=== PATIENT | female | born 1935 | race Caucasian/White ===

== ENCOUNTER 2021-04-09 15:10 | Inpatient (IN) | payer MEDICARE, SELFPAY ==
--- NOTE | 2021-04-09 15:33 | ECG_ITS ---
[facility] Test Date: 2021-04-09 Pat Name: Winnie Boyle Department: Room: 275 Gender: Female Iv Technician: : 1935 Requested By: Frank Joseph Order Number: [id number] Isaac MD: Federico Bhandari M.D. Measurements Intervals [place] Rate: 73 P: 86 CT: 144 QRS: -65 QRSD: 113 T: 133 QT: 404 QTc: 445 Interpretive Statements SINUS RHYTHM WITH OCCASIONAL SUPRAVENTRICULAR PREMATURE COMPLEXES INFERIOR MYOCARDIAL INFARCTION [40+ ms Q WAVE AND/OR ST/T ABNORMALITY IN II/aVF], PROBABLY OLD MODERATE T-WAVE ABNORMALITY, CONSIDER LATERAL ISCHEMIA [-0.1+ mV T WAVE IN I/aVL/V5/V6] No previous ECG available for comparison Electronically Signed On 04-09-2021 19:23:30 CDT by Federico Bhandari M.D. [id number]
--- NOTE | 2021-04-09 15:37 | CTR_ITS ---
PROCEDURE INFORMATION: Exam: CT Head Without Contrast Exam date and time: 04/09/2021 3:54 PM Age: 85 years old Clinical indication: Injury or trauma; Fall; Blunt trauma (contusions or hematomas); Injury details: Fell down steps; Additional info: Pain, fall TECHNIQUE: Imaging protocol: Computed tomography of the head without contrast. Total images: 225 Radiation optimization: All CT scans at this facility use at least one of these dose optimization techniques: automated exposure control; mA and/or kV adjustment per patient size (includes targeted exams where dose is matched to clinical indication); or iterative reconstruction. COMPARISON: No relevant prior studies available. RADIATION DOSE METRICS: Total DLP (mGy-cm): 963.16 FINDINGS: Brain: No evidence of active or acute intracranial pathologic process, hemorrhage, or trauma. Moderate small vessel ischemic disease with senile periventricular leukomalacia. No mass effect. No midline shift. No visible hyperdense MCA or insular ribbon sign. Advanced cerebral and cerebellar atrophy with ventricular dilatation greater than that anticipated for patient's chronological age. Cerebral ventricles: No ventriculomegaly. Bones/joints: Unremarkable. No acute fracture. Paranasal sinuses: Visualized sinuses are unremarkable. No fluid levels. Mastoid air cells: Visualized mastoid air cells are well aerated. Soft tissues: Unremarkable. CT/CT head wo con* [id number] IMPRESSION: No evidence of active or acute intracranial pathologic process, hemorrhage, or trauma. Radiation Dose CTDIVOL = (mGy): DLP = 963.16 (mGy-cm)
--- NOTE | 2021-04-09 15:37 | CTR_ITS ---
PROCEDURE INFORMATION: Exam: CT Cervical Spine Without Contrast Exam date and time: 04/09/2021 3:54 PM Age: 85 years old Clinical indication: Injury or trauma; Fall; Blunt trauma; Additional info: Pain, fall TECHNIQUE: Imaging protocol: Computed tomography images of the cervical spine without contrast. Total images: 326 Radiation optimization: All CT scans at this facility use at least one of these dose optimization techniques: automated exposure control; mA and/or kV adjustment per patient size (includes targeted exams where dose is matched to clinical indication); or iterative reconstruction. COMPARISON: No relevant prior studies available. RADIATION DOSE METRICS: Total DLP (mGy-cm): 314.66 FINDINGS: Bones/joints: No acute fracture. Advanced degenerative disease and degenerative disc disease of the cervical spine with spondylosis deformans. Advanced facet arthrosis. Osteopenia/osteoporosis. Mild scoliotic curvature. Discs/Spinal canal/Neural foramina: Degenerative disc disease most advanced with disc space height loss and spondylosis deformans C5/C6 and C6/C7 and to a less significant degree C2/C3. Degenerative disc disease is evident throughout the visualized cervical and upper thoracic spine.No significant disc protrusion. No severe spinal canal stenosis. Bilateral neural foraminal stenosis C3/C4. Right neural foraminal stenosis C4/C5 and C5/C6. Thyroid: Thyroid goiter. No follow-up recommended. Lungs: Lung apices are unremarkable for age. Soft tissues: Unremarkable for age. CT/CT cervical spin wo con* [id number] IMPRESSION: 1. No visible fracture. 2. Advanced degenerative disease and degenerative disc disease. Radiation Dose CTDIVOL = (mGy): DLP = 314.66 (mGy-cm)
--- NOTE | 2021-04-09 15:38 | P.HP_ITS ---
Providers/Chief Complaint Admitting Physician: Frank Bueno MD Primary Care Provider: Lito Pickard MD Chief Complaint: L HIP FX History of Present Illness Winnie Boyle is a 85 year old female who presents from [facility] in [facility] with a left subcapital hip fracture. Patient reports in a neighbor's dog came to greet her, and accidentally pushed her down 3 steps. She states she had immediate pain in her left hip. She is also having some posterior neck pain and a headache. She reports she was a little nauseated but not now. She had no vomiting. She has not been ill lately. She reports normally she walks around the flowers in her yard without any chest discomfort and has fair exercise tolerance. She had been told she had a myocardial infarction in her 30s but never had any need for any intervention or other symptoms. She denies any active chest discomfort now or any other injuries other than what is stated above. She denies any history of Covid. Review of Systems General: Reports: 10 or more systems reviewed and unremarkable except in HPI and below Const: Denies: fever(s) or chills Eyes: Denies: change in vision ENMT: Denies: throat pain Card: Denies: chest pain Resp: Denies: dyspnea GI: Reports: nausea; Denies: abdominal pain or vomiting : Denies: flank pain Musc: Reports: neck pain and extremity pain Skin/Breast: Denies: rash Neuro: Reports: headache(s) Psych: Denies: anxiety or depression Endo: Denies: polyuria Rivera/Lymph: Denies: easy bruising All/Imm: Denies: urticaria PFSH Acute PFSH: Medical History (Updated 04/09/21 @ 15:47 by Frank Bueno MD) Nephrolithiasis Osteoporosis Rheumatoid arthritis Tobacco dependency Surgical History (Updated 04/09/21 @ 15:44 by Frank Bueno MD) History of appendectomy History of exploratory laparotomy History of hernia repair Family History (Updated 04/09/21 @ 15:44 by Frank Bueno MD) Other Diabetes Social History (Updated 04/09/21 @ 15:44 by Frank Bueno MD) Smoking and tobacco status: current some day smoker Alcohol intake: current Alcohol intake frequency: 0-2 Drinks per Day Supplemental PFSH Information: History of anterior and posterior vaginal repair Physical Exam Narrative: EXAM NARRATIVE: General exam is a white female, alert and oriented complaining of left hip pain HEENT: Pupils equally round. Arcus senilis present Neck is supple no lymphadenopathy or thyromegaly Cardiovascular regular rate and rhythm without murmur Lungs clear no wheezing or crackles Abdomen is soft with positive bowel sounds. No obvious organomegaly is deferred, Wang noted Extremities no cyanosis clubbing or edema, obvious joint deformities consistent with rheumatoid arthritis Skin no rash Neuro no obvious focal deficits. Data Other data: Outside laboratory demonstrated a glucose of 140, sodium 136, potassium 4.1, chloride 100, bicarb 27, BUN 16, creatinine 0.5, LFTs normal. Platelet count 207, hemoglobin 14.5, white blood cell count 8.7 Fracture left femoral neck on plain film report. Covid PCR negative Vitamin D level 79 A&P Assessment and plan (1) Closed left hip fracture: Acute Bedrest Pain control with morphine Zofran for nausea Orthopedic surgery consultation N.p.o. in case she goes to surgery tonight Past history of osteoporosis. Vitamin D level okay. Check TSH with a.m. lab. Status: Acute (2) Fall: Significant mechanical fall down 3 steps, caused by interaction with dog. She is having some neck pain post fall and has not had neck imaging. She had no syncope. She also complains of a mild headache. See notation regarding neck pain below. Status: Acute (3) Hyperglycemia: Check A1c in the morning. Blood sugar minorly elevated. Status: Acute (4) Rheumatoid arthritis: Currently not on treatment. Has obvious deformities of her hands. Status: Acute (5) Tobacco dependency: Counseled on stopping Status: Acute (6) Neck pain: Check CT cervical spine and CT head noncontrast Status: Acute Additional A&P Information Patient gives past history of coronary artery disease with VT at young age but no intervention. Significance of this is uncertain. No history to suggest further testing is needed prior to surgery. Full code SCDs for DVT prophylaxis as surgery may be performed tonight No direct contraindications to surgery, so long as CT of head and neck do not show bleeding or fracture. Attestations Medical Necessity Statement*: Will need greater than 2 midnight stay for evaluation and treatment of hip fracture Time Spent in Patient Care: Greater than 35 minutes Coding Level of Care Code Acute Rural Carrier for Chg Fwd Diagnoses Closed left hip fracture S72.002A Fall W19.XXXA Hyperglycemia R73.9 Rheumatoid arthritis M06.9 Tobacco dependency F17.200 Neck pain M54.2
--- NOTE | 2021-04-09 15:51 | XR_ITS ---
WS: [id number] Left hip, AP view, 04/09/2021 Clinical Data: Left hip fracture Comparison: None. Findings: There is an intertrochanteric fracture of the left hip. The femoral head remains in the acetabulum. T he proximal femoral medullary shaft is intact. The adjacent left pelvis is not remarkable. XR/XR hip LT 1V wo/w pel [id number] Impression: Intertrochanteric fracture of the left hip.
[2021-04-09 16:00] VITALS: BP 160/78; PULSE 76; RESP 18; TEMP 36.9; O2SAT 92
[2021-04-09 16:15] VITALS: BMI 21.5
[2021-04-09 16:20] VITALS: PULSE 94; O2SAT 91
[2021-04-09 16:29] VITALS: RESP 18; O2SAT 92
[2021-04-09] MEDS: sodium chloride 0.9% 1,000 ML 75 ML IV (16:29)
[2021-04-09] MEDS: morphine 4 mg/mL SDV 1 mL 2 MG IVP (16:29)
--- NOTE | 2021-04-09 16:30 | P.CONIM_ITS ---
Providers/Reason For Consult Consulting Physican/Specialty*: Anthony Lujan MD; orthopedic surgery Reason for Consult*: Left intertrochanteric hip fracture Attending Physician: Frank Bueno MD Primary Care Provider: Lito Pickard MD History of Present Illness History of Present Illness Winnie Boyle is a 85 year old female who was transferred from [facility] to [facility] in [place] after a fall at home. She reportedly was stepping out of her living room down a step outside with a neighbor's dog came to greet her. He accidentally pushed her down 3 steps with immediate pain in her left hip. She was seen in [facility] requested transfer here to [facility]. She describes pain in her left hip and posterior neck. She describes a previous history of back and posterior hip pain she attributes to piriformis syndrome. PFSH Acute PFSH: Medical History (Updated 04/09/21 @ 16:35 by Anthony Lujan MD) Nephrolithiasis Osteoporosis Rheumatoid arthritis Tobacco dependency Surgical History (Updated 04/09/21 @ 15:44 by Frank Bueno MD) History of appendectomy History of exploratory laparotomy History of hernia repair Family History (Updated 04/09/21 @ 15:44 by Frank Bueno MD) Other Diabetes Social History (Updated 04/09/21 @ 15:44 by Frank Bueno MD) Smoking and tobacco status: current some day smoker Alcohol intake: current Alcohol intake frequency: 0-2 Drinks per Day Vitals/I&O/Wt Last Vital Signs Temp 98.4 F 04/09/21 16:00 Pulse 76 04/09/21 16:00 Resp 18 04/09/21 16:00 BP 160/78 04/09/21 16:00 Pulse Ox 92 04/09/21 16:00 Physical Exam Narrative: EXAM NARRATIVE: The patient is a thin female in bed in no obvious distress. She is awake and alert. She answers questions appropriately and is oriented to person place and time. HEAD: Normocephalic/atraumatic. NECK: Soft supple nontender. HEART: Normal heart sounds, regular rhythm. CHEST: Clear to auscultation. ABDOMEN: Soft nontender nondistended. She has no malalignment of the left lower extremity but exquisite pain with rotation of the left hip. She will flex extend her toes and ankle bilaterally without motor deficits. Sensation is grossly intact to light touch. Urinary Catheter Management^: Wang: Cath Placed During This Visit: yes Urinary Catheter Date of Insertion: 04/08/21 Urinary Catheter Time of Insertion: 09:00 Data Imaging^: Xray Ortho: My impression: I reviewed an AP of the left hip. The patient has a nondisplaced left intratrochanteric hip fracture Radiologist's impression: Radiologist report is not available as of yet. A&P Assessment and plan (1) Intertrochanteric fracture of left hip: The patient has a nondisplaced intertrochanteric left hip fracture. She has significant osteopenia. Medical comorbidities including likely rheumatoid arthritis, coronary artery disease, and a 73-year history of smoking contribute to medical risk with surgery. I discussed options with the patient.. I told the patient we could treat this nonoperatively but certainly they would be at risk for medical problems without surgery. Theywould have problems with pain that would require narcotics for pain control. They would require a long period of bedrest respiratory scientist risk for pneumonia and skin breakdown. I discussed surgical intervention with the patient. I told them with open reduction internal fixation they should be able to be mobilized and resume ambulatory status. We can eliminate the problems associated with prolonged bed rest and would have better control of pain. Certainly there would be inherent risk with surgery. These would would include the risk of cardiac complications, stroke, infection, and even . I discussed risk of any orthopedic implant including nonunion, malunion, a component failure. I discussed the possible need for component removal. I discussed risk of deep venous thromboses and pulmonary emboli that are present with any treatment and the importance of DVT prophylaxis. The patient expressed good understanding of alternative treatments, seem to comprehend, and agrees to surgical intervention. Status: Acute Coding Level of Care Code Acute Car Servicer for Leonel Carrasco Diagnoses Intertrochanteric fracture of left hip S72.142A
[2021-04-09 19:26] VITALS: BP 118/66; PULSE 74; RESP 17; TEMP 37.3; O2SAT 94
[2021-04-09 23:46] VITALS: BP 114/68; PULSE 72; RESP 17; TEMP 36.5; O2SAT 92
[2021-04-10] VITALS (22 sets, daily range): BP systolic 115–174; BP diastolic 60–88; PULSE 69–92; RESP 16–96; TEMP 36.3–38.1; O2SAT 86–99
--- NOTE | 2021-04-10 | XR_ITS ---
WS: [id number] Left hip, C-arm fluoroscopy view, 04/10/2021 Clinical Data: OR PICS Comparison: Left hip, 04/09/2021. Findings: A left hip nail is inserted in the left femoral neck. There is a long trevor in the left femur. XR/XR hip LT 2-3V wo/w pel* [id number] Impression: Internal fixation of left hip intertrochanteric fracture.
--- NOTE | 2021-04-10 | SCC_ITS ---
Procedure Done: Open reduction internal fixation left hip with intramedullary device 50.5 seconds of fluoroscopic guidance, for a cumulative dose of - mGy, was provided to Dr. Lujan by the radiology department. C-arm images of the LEFT hip were saved for the patient's permanent record. [facility]itchie
[2021-04-10] MEDS: sodium chloride 0.9% 1,000 ML 75 ML IV (05:16)
[2021-04-10 06:32] LABS: Basophils % 0.4 %; Eosinophils % 0.4 %; Hematocrit 36.3 % (37.0-47.0); Hemoglobin 11.7 g/dL (11.5-15.3); Mean Corpuscular HGB Conc 32.2 g/dL (30.0-36.0); Mean Corpuscular Volume 96.3 fL (81-99); Mean Platelet Volume 9.4 fL (7.4-10.4); Monocytes # 0.7 10^3/uL (0.2-0.9); Monocytes % 9.8 %; Neutrophils # 5.05 10^3/uL (1.8-7.7); Neutrophils % 74.1 %; Nucleated Red Blood Cells % 0 %; Platelet Count 165 10^3/cmm (130-400); Red Blood Count 3.77 10^6/uL (4.1-5.3); Red Cell Distribution Width 13.6 % (12.1-15.1); White Blood Count 6.8 10^3/uL (4.0-10.0)
[2021-04-10 06:47] LABS: Estmated Average Glucose 91; Hemoglobin A1C 4.8 % (4.0-6.0)
[2021-04-10 07:00] LABS: Alanine Aminotransferase 10 U/L (0-33); Albumin Level 3.2 g/dL (3.5-5.2); Alkaline Phosphatase 39 IU/L (35-105); Anion Gap 10.2 (5-19); Aspartate Amino Transferase 20 U/L (0-32); Blood Urea Nitrogen 12 mg/dL (8-23); Calcium 7.7 mg/dL (8.5-10.5); Carbon Dioxide 26 mmol/L (22-29); Chloride 104 mmol/L (98-107); Globulin 2.4 g/dL (1.3-4.6); Glucose 84 mg/dL (65-115); Osmolality Calculated 281 mOsm/kg (285-295); Potassium 4.2 mmol/L (3.5-5.1); Sodium 136 mmol/L (136-145); Thyroid Stimulating Hormone 0.52 uIU/mL (0.27-4.20); Total Bilirubin 0.7 mg/dL (0.15-1.2); Total Protein 5.6 g/dL (6.6-8.7)
--- NOTE | 2021-04-10 09:56 | PC.PHAR ---
pt states she doesnt really take medications-pt states she did have a rx for prednisone 10mg and norco 7.5-325mg-ext med history shows a rx filled on 04/08/[address] or qty-d/s or where filled at-called [facility] and [facility] none of them filled those medication for the pt-
--- NOTE | 2021-04-10 12:16 | W.PM.OPSUD ---
Surgery/Procedure H&P Update DATE OF PROCEDURE: April 10, 2021 DATE H&P PERFORMED: 04/09/21 PLANNED PROCEDURE: Operation Date: 04/10/21 12:00 Proposed Procedures p Trochanteric Femoral Nail(Left) - Anthnoy Lujan MD
[2021-04-10] MEDS: sodium chloride 0.9% 1,000 ML 30 ML IV (12:29)
--- NOTE | 2021-04-10 12:35 | ANES.PREANE2 ---
Pre-Anesthetic Assessment Pre-Anesthetic Assessment: Height/Weight: Height 1.57 m Weight 53.388 kg Temp Pulse Resp BP Pulse Ox 99.1 F 76 18 151/75 90 04/10/21 12:25 04/10/21 12:25 04/10/21 12:25 04/10/21 12:25 04/10/21 12:25 Preop Diagnosis: femoral fracture Proposed Procedure: Operation Date: 04/10/21 12:00 Proposed Procedures p Trochanteric Femoral Nail(Left) - Anthony Lujan MD Familial anesthetic complications: none Was Beta Roel taken within 24 hours: N/A Was Clonidine taken within 24 hours: N/A Last intake: > 8 hrs Social: Social History: Tobacco and No alcohol Exam: Pre-Anes Outpt Exam: alert, oriented x 3, clear to auscultation bilaterally and regular rate & rhythm Airway: Cervical ROM: WNL MP: 2 Dentition: False Pulmonary: Pulmonary: COPD CV/HEM: CV/HEM: [place] (remote - age 30s) Comments: able to achieve > 4 mets Musc/skel: Musc/skel: RA Anesthetic Plan: ASA status: 3 Anesthesia: General Risk of > 500 ml blood loss (7ml/kg in children): No Meds/Allergies Current Medications: Current Medications Generic Name Dose Route Start Last Admin Trade Name Freq PRN Reason Stop Dose Admin Docusate Sodium 100 mg 04/09/21 18:00 04/10/21 12:27 Docusate Sodium 100 Mg Capsule PO Not Given BID GUTIERREZ Sodium Chloride 1,000 mls @ 75 ml s/hr 04/09/21 15:45 04/10/21 05:16 Sodium Chloride 0.9% IV 75 mls/hr .[id number] GUTIERREZ Administration Sodium Chloride 1,000 mls @ 30 ml s/hr 04/10/21 12:15 04/10/21 12:29 Sodium Chloride 0.9% IV 04/11/21 12:14 30 mls/hr .Q24H GUTIERREZ Administration Morphine Sulfate 2 mg 04/09/21 15:33 04/09/21 16:29 Morphine 4 Mg/Ml Sdv 1 Ml IVP 2 mg Q4H PRN Administration SEVERE PAIN PFSH Anesthesia PFSH: Medical History (Updated 04/09/21 @ 16:35 by Anthony Lujan MD) Nephrolithiasis Osteoporosis Rheumatoid arthritis Tobacco dependency Surgical History (Updated 04/09/21 @ 15:44 by Frank Bueno MD) History of appendectomy History of exploratory laparotomy History of hernia repair Family History (Updated 04/09/21 @ 15:44 by Frank Bueno MD) Other Diabetes Social History (Updated 04/09/21 @ 15:44 by Frank Bueno MD) Smoking and tobacco status: current some day smoker Alcohol intake: current Alcohol intake frequency: 0-2 Drinks per Day Supplemental PFSH Information: History of anterior and posterior vaginal repair Data Anesthesia CBC & Chem 7: 04/10/21 06:05 04/10/21 06:05 Other Labs: Laboratory Results - last 48 hr 04/10/21 04/10/21 04/10/21 06:05 06:05 06:05 WBC 6.8 RBC 3.77 L Hgb 11.7 Hct 36.3 L MCV 96.3 MCH 31.0 MCHC 32.2 RDW 13.6 Plt Count 165 MPV 9.4 Neut % (Auto) 74.1 Lymph % (Auto) 15.0 Burnett % (Auto) 9.8 Eos % (Auto) 0.4 Baso % (Auto) 0.4 Neut # (Auto) 5.05 Lymph # (Auto) 1.0 Burnett # (Auto) 0.7 Eos # (Auto) 0.0 Baso # (Auto) 0.0 Nucleated RBC % (auto) 0 Nucleated RBCs # 0.0 Sodium 136 Potassium 4.2 Chloride 104 Carbon Dioxide 26 Anion Gap 10.2 BUN 12 Creatinine 0.5 GFR Calculation Not Reportable Glucose 84 Estimat Average Glucose 91 Hemoglobin A1c 4.8 Calculated Osmolality 281 L Calcium 7.7 L Total Bilirubin 0.7 AST 20 ALT 10 Alkaline Phosphatase 39 Total Protein 5.6 L Albumin 3.2 L Globulin 2.4 TSH 0.52 Cardiac Studies: No Data to Display
--- NOTE | 2021-04-10 13:16 | P.OP_ITS ---
Operative Report Date of procedure: April 10, 2021 Pre-op Diagnosis: Left intertrochanteric femoral fracture Post-op diagnosis: same Procedure Done: Open reduction internal fixation left hip with intramedullary device Implants: Sohan gamma nail 13X 380mm, 100mm lag screw Pathology: none sent Anesthesia: General Estimated blood loss (mL): 100 Complications: None Findings: Patient had a minimally displaced 2 part left intertrochanteric fracture with significant osteopenia of the bone Condition: stable Disposition: PACU Procedure: The patient was taken to the operating room. They were given 1 g of Ancef. They were positioned on the fracture table with the right lower extremity in gentle traction. A timeout was performed. A 2 cm long incision was made proximal to the greater trochanter scalpel blade. Dissection was carried down to tip the greater trochanter. A guidepin was passed manually from the tip of the trochanter down the shaft. The proximal reamer was utilized to open up the proximal canal. An 13 mm 380 Sohan gamma nail was passed down the canal without difficulty. Under visualization of fluoroscopy a guidepin was driven up into the head and neck at 125? angle. It was measured at 1 mm in length and a lag screw similar length was then placed and locked into place with the proximal locking screw. [The static guides were then used to pass the distal locking screw.] Intraoperative imaging was obtained verifying satisfactory position of the hardware and reduction of the fracture. Deep tis sues were closed with 0 Vicryl . Subcutaneous tissue were closed with 2-0 Vicryl. Sterile dressings were applied. The patient was extubated and taken to recovery room in stable condition.
--- NOTE | 2021-04-10 13:27 | P.PCN_ITS ---
PACU note PACU note: VSS, Good respiratory effort, report to FIG WASHER Post-Anesthesia Exam: awake
--- NOTE | 2021-04-10 13:27 | PM.PACU ---
PACU note PACU note: VSS, Good respiratory effort, report to [facility] Post-Anesthesia Exam: awake
--- NOTE | 2021-04-10 13:38 | SUR.PHASEI ---
PT AWAKE ALERT DENIES PAIN IF LAYING STILL, PT ON2LNC TAKING OCC ICE CHIPS VSS LT HIP DRESSING D/I DISTAL FOOT PINK WARM WITH STRONG REGULAR PULSE NOTED. TAYLOR TO DD WITH YELLOW URINE NOTED TO TUBING AND BAG.
[2021-04-10] MEDS: morphine 4 mg/mL SDV 1 mL 2 MG IVP ×2 (13:43→13:55)
--- NOTE | 2021-04-10 14:00 | SUR.PHASEI ---
1343 PT C/O OF INCREASED PAIN TO LT HIP SEE MED GIVEN SITES D/I DISTAL FOOT PINK WARM DRY WITH STRONG REGULAR PULSE NOTED.
--- NOTE | 2021-04-10 14:12 | ANE.PACU2 ---
Inpatient post-anesthesia follow up: Airway intact: Yes Vital signs: Temperature 97.4 F Pulse Rate 78 Respiratory Rate 17 Blood Pressure 166/77 Pulse Oximetry 98 Oxygen Delivery Me thod [ Nasal Cannula Current Rate & Del fiona] Oxygen Delivery Me thod Nasal Cannula Oxygen Flow Rate [ Current Rate 2 & Delivery] Oxygen Flow Rate 2 Fraction of Inspir ed Oxygen Hydration adequate: Yes Nausea and vomiting: No Pain level: 2 Mental status: Baseline
--- NOTE | 2021-04-10 14:28 | PM.PN ---
Subjective Subjective: Interval history: I saw Ms. Boyle earlier this morning. She had no particular complaints and was ready for surgery. Medications: Reviewed: Yes Vitals/I&O/Wt Last Vital Signs Temp 97.4 F L 04/10/21 14:05 Pulse 78 04/10/21 14:05 Resp 17 04/10/21 14:05 BP 166/77 04/10/21 14:05 Pulse Ox 98 04/10/21 14:05 04/09/21 04/10/21 04/10/21 22:59 06:59 14:59 Intake Total 0 / 0 958.75 / 958.75 150 / 150 Output Total 550 / 550 400 / 950 150 / 150 Balance -550 / -550 558.75 / 8.75 0 / 0 Weight last 48 hrs Weight 53.388 kg Physical Exam Narrative: EXAM NARRATIVE: General exam no apparent distress Cardiovascular regular in rhythm without murmur Lungs clear Abdomen is soft with positive bowel sounds Extremities no cyanosis clubbing or edema Urinary Catheter Management^: Wang: Cath Placed During This Visit: yes Reason for Continuing Indwelling Catheter: Perioperative Use in Selected Surgeries Urinary Catheter Date of Insertion: 04/08/21 Urinary Catheter Time of Insertion: 09:00 Data : 04/10/21 06:05 04/10/21 06:05 A&P Assessment and plan (1) Closed left hip fracture: Directly postoperative currently Pain control with morphine Zofran for nausea Appreciate orthopedic surgery consultation Status: Acute (2) Fall: Significant mechanical fall down 3 steps, caused by interaction with dog. She is having some neck pain post fall and has not had neck imaging. She had no syncope. She also complains of a mild headache. See notation regarding neck pain below. CT of head and neck were performed and negative for intracranial hemorrhage, acute findings, fracture Status: Acute (3) Hyperglycemia: TSH and hemoglobin A1c was normal Status: Acute (4) Rheumatoid arthritis: Currently not on treatment. Has obvious deformities of her hands. She indicates to me she does not take prednisone 10 mg daily Status: Acute (5) Tobacco dependency: Counseled on stopping Status: Acute (6) Neck pain: CT negative for fracture Status: Acute Additional A&P Information Patient gives past history of coronary artery disease with MA at young age but no intervention. Significance of this is uncertain. No history to suggest further testing is needed prior to surgery. Full code SCDs for DVT prophylaxis It appears aspirin has been added from the surgeon for DVT prophylaxis following orthopedic surgery. Attestations Medical Necessity Statement*: Needs continued hospital stay for close monitoring following fracture repair. Coding Level of Care Code Acute Artificial Leather Calender Operator for Chg Fwd Diagnoses Closed left hip fracture S72.002A Fall W19.XXXA Hyperglycemia R73.9 Rheumatoid arthritis M06.9 Tobacco dependency F17.200 Neck pain M54.2
[2021-04-10] MEDS: HYDROcodone-acetaminophen 5-325 mg Tablet 1 TAB PO (16:37)
[2021-04-10] MEDS: sennosides-docusate Tablet 2 TAB PO (17:28)
[2021-04-10] MEDS: calcium carbonate 500 mg Chew Tablet 1000 MG PO (17:28)
[2021-04-10] MEDS: iron polysaccharide complex 150 mg Capsule PO (17:28)
--- NOTE | 2021-04-10 18:52 | PC.RESP ---
Smoking Cessation information sent to patient.
[2021-04-11] VITALS (7 sets, daily range): BP systolic 85–121; BP diastolic 52–79; PULSE 70–87; RESP 16–20; TEMP 36.3–37.2; O2SAT 92–99
[2021-04-11 02:39] LABS: Basophils % 0.3 %; Eosinophils % 0.1 %; Hematocrit 33.2 % (37.0-47.0); Hemoglobin 10.9 g/dL (11.5-15.3); Lymphocytes # 0.6 10^3/uL (0.8-4.8); Lymphocytes % 8.6 %; Mean Corpuscular HGB Conc 32.8 g/dL (30.0-36.0); Mean Corpuscular Hemoglobin 30.9 pg (28.0-34.0); Mean Corpuscular Volume 94.1 fL (81-99); Mean Platelet Volume 9.7 fL (7.4-10.4); Monocytes # 0.6 10^3/uL (0.2-0.9); Monocytes % 8.3 %; Neutrophils # 5.88 10^3/uL (1.8-7.7); Neutrophils % 82.4 %; Nucleated Red Blood Cells % 0 %; Platelet Count 156 10^3/cmm (130-400); Red Blood Count 3.53 10^6/uL (4.1-5.3); Red Cell Distribution Width 13.3 % (12.1-15.1); White Blood Count 7.1 10^3/uL (4.0-10.0)
[2021-04-11 02:58] LABS: Anion Gap 12.1 (5-19); Blood Urea Nitrogen 13 mg/dL (8-23); Calcium 7.6 mg/dL (8.5-10.5); Carbon Dioxide 23 mmol/L (22-29); Chloride 98 mmol/L (98-107); Glucose 108 mg/dL (65-115); Osmolality Calculated 269 mOsm/kg (285-295); Potassium 4.1 mmol/L (3.5-5.1); Sodium 129 mmol/L (136-145)
[2021-04-11] MEDS: HYDROcodone-acetaminophen 5-325 mg Tablet 1 TAB PO ×3 (03:23→17:17)
--- NOTE | 2021-04-11 06:44 | PC.NURSE ---
SHIFT SUMMARY Has had a good night. Only took po Hydrocodone X1. Says really doesn't hurt unless she moves left leg. Dressing to lat left hip intact. Neurovascular check to left leg WNL. Temp to 100.6 tonight. Enc use of IS and po fluids. Drank some prune juice during night. Says hopefully will help her bowels move and wont need a laxative. Pt pays close attention to her diet and eats organic foods. Was not very happy with a sandwich she had last night due to processed meat. Family member had some soup from [email or web address] sent to her. Felipe removed this am. O2 in place at 3l per NC. Pt wanted it off during night but sats dropped into 80's so O2 resumed.
[2021-04-11] MEDS: morphine 4 mg/mL SDV 1 mL 2 MG IVP (07:26)
--- NOTE | 2021-04-11 07:36 | PC.NURSE ---
ACTIVITY Attempted to get up to BSC and chair this am. Pt thought she needed to have a BM. Very resistant to moving. After about 10 minutes got her to a standing position but would not slide or move feet at all. Doesn't want help from nurses. Yelled at nurse for even trying to help her. Stood holdling on to walker for another 10 minutes without any progress towards the BSC. Sat her back on side of bed and wants to sit there for breakfast. RN is medicating with some IV Morphine. Pt had declined taking any during night. Report to day shift nurse
--- NOTE | 2021-04-11 07:42 | XR_ITS ---
WS: [id number] Portable AP upright chest, 04/11/2021 Clinical Data: hypoxia Comparison: None. Findings: No nodules, masses or effusions are seen. There is scarring in the left lower lobe. No pneu monia or pneumothorax is seen. The pulmonary vascularity is normal. The heart is normal. The aortic a rch shows calcification and tortuosity. 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 XR/XR chest 1V portable 42607 Impression: Atherosclerosis.
[2021-04-11] MEDS: calcium carbonate 500 mg Chew Tablet 1000 MG PO (08:58)
[2021-04-11] MEDS: sennosides-docusate Tablet 2 TAB PO ×2 (08:59→17:18)
[2021-04-11] MEDS: multivitamin therapeutic Tablet 1 TAB PO (08:59)
[2021-04-11] MEDS: cholecalciferol (vitamin D3) 1,000 unit Tablet 1000 UNIT PO (08:59)
[2021-04-11] MEDS: aspirin 325 mg EC Tablet PO (08:59)
[2021-04-11] MEDS: iron polysaccharide complex 150 mg Capsule PO (09:02)
--- NOTE | 2021-04-11 10:32 | PM.PN ---
Subjective Subjective: Interval history: Ms. Boyle reports she is doing okay today. Her pain is under better control. Medications: Reviewed: Yes Vitals/I&O/Wt Last Vital Signs Temp 97.9 F 04/11/21 10:25 Pulse 87 04/11/21 10:25 Resp 16 04/11/21 10:25 BP 85/52 04/11/21 10:25 Pulse Ox 94 04/11/21 10:25 04/10/21 04/11/21 04/11/21 22:59 06:59 14:59 Intake Total 1313.25 / 1463.25 600 / 2063.25 480 / 480 Output Total 700 / 850 550 / 1400 Balance 613.25 / 613.25 50 / 663.25 480 / 480 Weight last 48 hrs Weight 53.388 kg Physical Exam Narrative: EXAM NARRATIVE: General exam no apparent distress Cardiovascular regular in rhythm without murmur Lungs clear Abdomen is soft with positive bowel sounds Extremities no cyanosis clubbing or edema. Incision site left hip with dressing clean and dry Urinary Catheter Management^: Wang: Cath Placed During This Visit: yes, but has since been removed by the nurse Reason for Continuing Indwelling Catheter: Decision to DC Catheter Urinary Catheter Date of Insertion: 04/08/21 Urinary Catheter Time of Insertion: 09:00 Date Urinary Catheter Removed: 04/11/21 Time Urinary Catheter Discontinued: 06:42 Data : 04/11/21 02:18 04/11/21 02:18 A&P Assessment and plan (1) Closed left hip fracture: Postoperative day #1 ORIF left hip Appreciate orthopedic surgery consultation Focus on rehabilitation today Status: Acute (2) Fall: Significant mechanical fall down 3 steps, caused by interaction with dog. She is having some neck pain post fall and has not had neck imaging. She had no syncope. She also complains of a mild headache. See notation regarding neck pain below. CT of head and neck were performed and negative for intracranial hemorrhage, acute findings, fracture Status: Acute (3) Hyperglycemia: TSH and hemoglobin A1c was normal Status: Acute (4) Rheumatoid arthritis: Currently not on treatment. Has obvious deformities of her hands. She indicates to me she does not take prednisone 10 mg daily. This was discontinued Status: Acute (5) Tobacco dependency: Counseled on stopping Status: Acute (6) Neck pain: CT negative for fracture Status: Acute Additional A&P Information Patient gives past history of coronary artery disease with [place] at young age but no intervention. Significance of this is uncertain. No history to suggest further testing is needed prior to surgery. Acute postoperative blood loss anemia. Hemoglobin 10.9 today. No need for transfusion. Temperature of 100.6 last night. Urinalysis and chest x-ray ordered. Urinalysis is pending. Chest x-ray shows no infiltrate. Mild hyponatremia. Fluids discontinued. Lasix considered but patient borderline hypotensive. We will recheck tomorrow. Full code SCDs for DVT prophylaxis It appears aspirin has been added from the surgeon for DVT prophylaxis following orthopedic surgery. Attestations Medical Necessity Statement*: Needs continued hospitalization for close monitoring following hip fracture repair Coding Level of Care Code Acute Statement Processor for Chg Fwd Diagnoses Closed left hip fracture S72.002A Fall W19.XXXA Hyperglycemia R73.9 Rheumatoid arthritis M06.9 Tobacco dependency F17.200 Neck pain M54.2
[2021-04-11 16:56] LABS: Bilirubin Urine Neg (Negative); Blood Urine 2+ (Negative); Glucose Urine UA Norm (Normal); Ketones Urine 1+ (Negative); Leukocyte Esterase Urine 2+ (Negative); Nitrate Urine Negative (Negative); Protein Urine Neg (Negative); Urine Appearance Hazy (CLEAR); Urine Color Yellow (Yellow); Urobilinogen Urine Norm (Negative); pH Urine 5 (5-7)
[2021-04-11 16:58] LABS: Add Urine Culture? No; Bacteria Urine 2+ /hpf; Squamous Epithelial Cell Urine 25-40 /hpf (0-5); WBC Urine 25-40 /hpf (0-5)
[2021-04-12 00:15] VITALS: BP 123/79; PULSE 78; RESP 18; TEMP 36.2; O2SAT 97
[2021-04-12] MEDS: HYDROcodone-acetaminophen 5-325 mg Tablet 1 TAB PO ×5 (00:37→22:08)
[2021-04-12 04:19] VITALS: BP 134/79; PULSE 71; RESP 16; TEMP 36.4; O2SAT 97
[2021-04-12] MEDS: sennosides-docusate Tablet 2 TAB PO (08:30)
[2021-04-12] MEDS: multivitamin therapeutic Tablet 1 TAB PO (08:30)
[2021-04-12 08:55] LABS: Basophils % 0.3 %; Eosinophils # 0.1 10^3/uL (0.0-0.8); Eosinophils % 0.8 %; Hematocrit 34.9 % (37.0-47.0); Hemoglobin 11.6 g/dL (11.5-15.3); Lymphocytes # 0.6 10^3/uL (0.8-4.8); Lymphocytes % 9.1 %; Mean Corpuscular HGB Conc 33.2 g/dL (30.0-36.0); Mean Corpuscular Hemoglobin 31.1 pg (28.0-34.0); Mean Corpuscular Volume 93.6 fL (81-99); Mean Platelet Volume 10.1 fL (7.4-10.4); Monocytes # 0.5 10^3/uL (0.2-0.9); Monocytes % 7.9 %; Neutrophils # 5.26 10^3/uL (1.8-7.7); Neutrophils % 81.6 %; Nucleated Red Blood Cells % 0 %; Platelet Count 171 10^3/cmm (130-400); Red Blood Count 3.73 10^6/uL (4.1-5.3); Red Cell Distribution Width 13.2 % (12.1-15.1); White Blood Count 6.5 10^3/uL (4.0-10.0)
[2021-04-12 09:11] LABS: Blood Urea Nitrogen 12 mg/dL (8-23); Calcium 7.9 mg/dL (8.5-10.5); Carbon Dioxide 28 mmol/L (22-29); Chloride 98 mmol/L (98-107); Glucose 122 mg/dL (65-115); Osmolality Calculated 275 mOsm/kg (285-295); Sodium 132 mmol/L (136-145)
--- NOTE | 2021-04-12 09:14 | PC.SOCIAL ---
*IMM UPDATE* Gave patient IMM update. Provided copy of pg 2 of IMM. Verbalized understanding. 04/12/21 @ 0902 Initialed, dated, timed and placed in chart.
[2021-04-12] MEDS: aspirin 325 mg EC Tablet PO (10:58)
--- NOTE | 2021-04-12 13:48 | P.PN_ITS ---
Subjective Subjective: Interval history: Slow progress with therapy. Pain much better Vitals/I&O/Wt Last Vital Signs Temp 97.6 F 04/12/21 04:19 Pulse 71 04/12/21 04:19 Resp 16 04/12/21 04:19 BP 134/79 04/12/21 04:19 Pulse Ox 97 04/12/21 04:19 04/11/21 04/12/21 04/12/21 22:59 06:59 14:59 Intake Total 480 / 1200 540 / 540 Output Total 650 / 650 1400 / 2050 Balance -650 / 70 -920 / -850 540 / 540 Physical Exam Narrative: EXAM NARRATIVE: Left hip dressing with slight sanguinous staining. Expected left thigh swelling Urinary Catheter Management^: Wang: Cath Placed During This Visit: yes, but has since been removed by the nurse Reason for Continuing Indwelling Catheter: Decision to DC Catheter Urinary Catheter Date of Insertion: 04/08/21 Urinary Catheter Time of Insertion: 09:00 Date Urinary Catheter Removed: 04/11/21 Time Urinary Catheter Discontinued: 06:42 Data : 04/12/21 08:40 04/12/21 08:40 A&P Assessment and plan (1) Postoperative state: Status: Acute (2) Intertrochanteric fracture of left hip: Status: Acute Attestations Medical Necessity Statement*: Needs placement Coding Level of Care Code Acute Leak Inspector for Leonel Carrasco Diagnoses Postoperative state Z98.890 Intertrochanteric fracture of left hip S72.142A
--- NOTE | 2021-04-12 14:17 | PM.PN ---
Subjective Subjective: Interval history: No issues overnight. Still has some pain but better than yesterday. Medications: Reviewed: Yes Vitals/I&O/Wt Last Vital Signs Temp 97.6 F 04/12/21 04:19 Pulse 71 04/12/21 04:19 Resp 16 04/12/21 04:19 BP 134/79 04/12/21 04:19 Pulse Ox 97 04/12/21 04:19 04/11/21 04/12/21 04/12/21 22:59 06:59 14:59 Intake Total 480 / 1200 540 / 540 Output Total 650 / 650 1400 / 2050 Balance -650 / 70 -920 / -850 540 / 540 Physical Exam Narrative: EXAM NARRATIVE: General exam no apparent distress Cardiovascular regular in rhythm without murmur Lungs clear Abdomen is soft with positive bowel sounds Extremities no cyanosis clubbing or edema. Incision site left hip with dressing clean and dry Urinary Catheter Management^: Wang: Cath Placed During This Visit: yes, but has since been removed by the nurse Reason for Continuing Indwelling Catheter: Decision to DC Catheter Urinary Catheter Date of Insertion: 04/08/21 Urinary Catheter Time of Insertion: 09:00 Date Urinary Catheter Removed: 04/11/21 Time Urinary Catheter Discontinued: 06:42 Data : 04/12/21 08:40 04/12/21 08:40 A&P Assessment and plan (1) Closed left hip fracture: Postoperative day #2 ORIF left hip Appreciate orthopedic surgery consultation Continue rehabilitation Status: Acute (2) Fall: Significant mechanical fall down 3 steps, caused by interaction with dog. She is having some neck pain post fall and has not had neck imaging. She had no syncope. She also complains of a mild headache. See notation regarding neck pain below. CT of head and neck were performed and negative for intracranial hemorrhage, acute findings, fracture Status: Acute (3) Hyperglycemia: TSH and hemoglobin A1c was normal Status: Acute (4) Rheumatoid arthritis: Currently not on treatment. Has obvious deformities of her hands. She indicates to me she does not take prednisone 10 mg daily. This was discontinued Status: Acute (5) Tobacco dependency: Counseled on stopping Status: Acute (6) Neck pain: CT negative for fracture Status: Acute Additional A&P Information Patient gives past history of coronary artery disease with [place] at young age but no intervention. Significance of this is uncertain. No history to suggest further testing is needed prior to surgery. Acute postoperative blood loss anemia. Hemoglobin stable today Temperature of 100.6 following surgery. Chest x-ray negative. Urinalysis contaminated. No further fevers. Mild hyponatremia. Fluids discontinued. Improved Full code SCDs for DVT prophylaxis It appears aspirin has been added from the surgeon for DVT prophylaxis following orthopedic surgery. Continue rehabilitation, pending placement. Attestations Medical Necessity Statement*: Needs continued hospitalization for intensive therapy pending placement. Coding Level of Care Code Acute Line Staker for [facility] Fwd Diagnoses Closed left hip fracture S72.002A Fall W19.XXXA Hyperglycemia R73.9 Rheumatoid arthritis M06.9 Tobacco dependency F17.200 Neck pain M54.2
[2021-04-12 21:48] VITALS: BP 142/80; PULSE 77; RESP 18; TEMP 37.1; O2SAT 97
[2021-04-12 23:54] VITALS: BP 169/78; PULSE 74; RESP 18; TEMP 36.9; O2SAT 97
[2021-04-12] MEDS: morphine 4 mg/mL SDV 1 mL 2 MG IVP (23:54)
[2021-04-13 03:53] VITALS: BP 127/71; PULSE 71; RESP 18; TEMP 36.6; O2SAT 92
[2021-04-13 05:02] LABS: Basophils % 0.5 %; Eosinophils # 0.1 10^3/uL (0.0-0.8); Eosinophils % 2.7 %; Hematocrit 31.2 % (37.0-47.0); Hemoglobin 10.4 g/dL (11.5-15.3); Lymphocytes # 0.7 10^3/uL (0.8-4.8); Lymphocytes % 19.1 %; Mean Corpuscular HGB Conc 33.3 g/dL (30.0-36.0); Mean Corpuscular Volume 93.1 fL (81-99); Mean Platelet Volume 10.2 fL (7.4-10.4); Monocytes # 0.4 10^3/uL (0.2-0.9); Monocytes % 10.1 %; Neutrophils # 2.53 10^3/uL (1.8-7.7); Neutrophils % 67.3 %; Nucleated Red Blood Cells % 0 %; Platelet Count 168 10^3/cmm (130-400); Red Blood Count 3.35 10^6/uL (4.1-5.3); Red Cell Distribution Width 13.2 % (12.1-15.1); White Blood Count 3.8 10^3/uL (4.0-10.0)
[2021-04-13 08:12] VITALS: BP 136/76; PULSE 74; RESP 18; TEMP 36.5; O2SAT 92
[2021-04-13] MEDS: HYDROcodone-acetaminophen 5-325 mg Tablet 1 TAB PO ×2 (08:42→14:49)
[2021-04-13 11:43] VITALS: BP 131/71; PULSE 76; RESP 17; TEMP 36.6; O2SAT 93
--- NOTE | 2021-04-13 11:44 | P.DS_ITS ---
Discharge Providers Date of Admission: 04/09/21 15:10 Date of Discharge: April 13, 2021 Attending Provider at Admission: Frank Bueno MD Attending Provider at Discharge: Rehan Funes MD Primary Care Provider: Lito Pickard MD Diagnoses at Discharge Discharge Diagnosis (1) Closed left hip fracture: Status: Acute (2) Fall: Status: Acute (3) Hyperglycemia: Status: Acute (4) Rheumatoid arthritis: Status: Acute (5) Tobacco dependency: Status: Acute (6) Neck pain: Status: Acute Reason for Visit Reason for Visit: L HIP FX Hospital Course Hospital Course 85 year old female who presents from [facility] in [facility] with a left subcapital hip fracture. Patient reports in a neighbor's dog came to greet her, and accidentally pushed her down 3 steps.She was admitted for the management of Closed left hip fracture S/P ORIF left hip. She experienced mechanical fall, there was no concern for syncope, CT head and neck without contrast was done was negative for intracranial hemorrhage, acute findings, fracture.Patient gives past history of coronary artery disease with [place] at young age but no intervention. Significance of this is uncertain. No history to suggest further testing is needed prior to surgery. Acute postoperative blood loss anemia. Hemoglobin was stable. She is being discharged to SNF, she will continue to follow with Dr. Lujan as an outpatient.She has been discharged on aspirin 325 mg p.o. daily by the [facility] surgeon for thrombosis prophylaxis after hip surgery. Physical Exam Urinary Catheter Management^: Wang: Cath Placed During This Visit: yes, but has since been removed by the nurse Reason for Continuing Indwelling Catheter: Decision to DC Catheter Urinary Catheter Date of Insertion: 04/08/21 Urinary Catheter Time of Insertion: 09:00 Date Urinary Catheter Removed: 04/11/21 Time Urinary Catheter Discontinued: 06:42 Discharge Data Data Completed and Pending: Completed Studies During Hospitalization Category Date Time Status CT cervical spin wo con* 40434 Stat Cat Scan 04/09/21 15:[address] head wo con* 7 0450 Stat Cat Scan 04/09/21 15:37 Completed XR chest 1V hardeep ble 25351 Routine Exams 04/11/21 07:42 Completed XR hip LT 1V wo/w pel [id number] Routine Exams 04/09/21 15:51 Completed XR hip LT 2-3V wo /w pel* [id number] Rout ine Exams 04/10/21 Completed Pending at discharge Category Date Time Status COVID [SARS Covid -2 Antigen] Stat Lab 04/13/21 10:51 Uncollected Labs from last 24 hours 04/13/21 04:27 WBC 3.8 L RBC 3.35 L Hgb 10.4 L Hct 31.2 L MCV 93.1 MCH 31.0 MCHC 33.3 RDW 13.2 Plt Count 168 MPV 10.2 Neut % (Auto) 67.3 Lymph % (Auto) 19.1 [place] % (Auto) 10.1 Eos % (Auto) 2.7 Baso % (Auto) 0.5 Neut # (Auto) 2.53 Lymph # (Auto) 0.7 L [place] # (Auto) 0.4 Eos # (Auto) 0.1 Baso # (Auto) 0.0 Nucleated RBC % (a uto) 0 Nucleated RBCs # 0.0 Vitals: Last Vital Signs Temp 97.7 F 04/13/21 08:12 Pulse 74 04/13/21 08:12 Resp 18 04/13/21 08:12 BP 136/76 04/13/21 08:12 Pulse Ox 92 04/13/21 08:12 Discharge Plan Discharge Patient Disposition: Xfer SNF Condition: Stable Prescriptions: New hydrocodone-acetaminophen 5-325 mg Tablet 1 tab PO Q4H PRN (Reason: Moderate Pain) Qty: 7 RF: 0 Stool Softener-Laxative 8.6-50 mg Tablet 2 tab PO BID 15 Days Qty: 60 RF: 0 aspirin 325 mg Tablet,Delayed Release (Dr/Ec) 325 mg PO DAILY 30 Days RF: 0 calcium carbonate 200 mg calcium (500 mg) Tablet,Chewable 1,000 mg PO BID 30 Days Qty: 300 RF: 3 cholecalciferol (vitamin D3) 25 mcg (1,000 unit) Tablet 1,000 unit PO DAILY 30 Days RF: 3 Continued prednisone 10 mg tablet 10 mg PO DAILY RF: 0 ginseng 1 tab PO PRN RF: 0 hydrocodone-acetaminophen 7.5-325 mg tablet 0.5 tab PO PRN Qty: 10 RF: 0 Discharge Orders: Discharge Order (Routine); Ordered 04/13/21 Ordered By: Rehan Funes Referrals: Anthony Lujan MD [Physician] - 2 weeks ([facility] will call you Dannie to set up an appointment.) Discharge Diet: Regular Discharge Activity: Increase activity as tolerated Patient Instructions: Hydrocodone/Acetaminophen (By mouth), Aspirin (By mouth), Laxative, Stool Softeners (By mouth), Open Reduction and Internal Fixation of a Hip Fracture (DC) Activity Restrictions/Additional Instructions: Patient is weight bearing as tolerated Discharge Attestations Time Spent in Discharge Care*: less than 30 min Quality Metrics Clinical Quality Measures During this hospital stay, did patient experience: None Coding Level of Care Code Acute Chg FW DC note Diagnoses Closed left hip fracture S72.002A Fall W19.XXXA Hyperglycemia R73.9 Rheumatoid arthritis M06.9 Tobacco dependency F17.200 Neck pain M54.2
[2021-04-13 12:25] LABS: SARS Covid-2 Antigen Negative (Negative)
--- NOTE | 2021-04-13 13:53 | PC.NURSE ---
Report Report was called to Lashell Serna LPN at [facility].
[2021-04-13 16:19] VITALS: BP 131/71; PULSE 76; RESP 17; TEMP 36.6; O2SAT 93
== END 2021-04-13 16:21 | disposition skilled nursing facility (03) | DRG 481 ==
PROVIDERS: Orthopaedic Surgery; Admitting Provider Internal Medicine; PCP Internal Medicine; Visit Provider Internal Medicine
PROC: 0QS706Z Reposition Left Upper Femur with Intramedullary Internal Fixation Device, Open Approach (ICD-10-PCS; CPT 27245; principal; 2021-04-10 12:00)
DX: M80.052A Age-related osteoporosis with current pathological fracture, left femur, initial encounter for fracture (principal); D62 Acute posthemorrhagic anemia; W10.8XXA Fall (on) (from) other stairs and steps, initial encounter; Z87.442 Personal history of urinary calculi; M06.9 Rheumatoid arthritis, unspecified; F17.210 Nicotine dependence, cigarettes, uncomplicated; M54.2 Cervicalgia; R73.9 Hyperglycemia, unspecified; I25.10 Atherosclerotic heart disease of native coronary artery without angina pectoris; I25.2 Old myocardial infarction; Z79.891 Long term (current) use of opiate analgesic
CPT/HCPCS: 36415; 51702; 70450; 71045; 72125; 73501; 73502; 76000; 80048; 80053; 81001; 83036; 84443; 85025; 87426; 93005; 97110; 97116; 97161; 97167; 97530; 97535; C1713; C1776; J0690; J2270; J2370; J2704; J3010; J7030

== ENCOUNTER → 2023-06-24 15:59 | Outpatient (BNVA) | payer SELFPAY | PROVIDERS: PCP Internal Medicine; Visit Provider Emergency Medicine | DX: M25.559 Pain in unspecified hip (principal); G89.29 Other chronic pain | CPT/HCPCS: 73502 ==

== ENCOUNTER 2023-06-29 11:20 | Emergency (ER) | payer SELFPAY ==
[2023-06-29 11:47] VITALS: BP 121/69; PULSE 72; RESP 18; TEMP 36.6; O2SAT 96; BMI 20.1
--- NOTE | 2023-06-29 12:54 | XRR_ITS ---
PROCEDURE INFORMATION: Exam: XR Left Foot Exam date and time: 06/29/2023 1:49 PM Age: 88 years old Clinical indication: Pain; Foot; Left; Additional info: Left foot pain TECHNIQUE: Imaging protocol: Radiologic exam of the left foot. Views: 3 or more views. COMPARISON: No relevant prior studies available. FINDINGS: Bones/joints: There is considerable lateral deviation of all of the toes. No fracture or other acute abnormality. The bones are quite demineralized. There is pes planus. There is a talar beak. Mild midfoot degenerative changes are seen. Soft tissues: Normal. XR/XR foot LT min 3V* [id number] IMPRESSION: Nonacute findings.
--- NOTE | 2023-06-29 12:59 | ED_ITS ---
HPI - Extremity Problem General: Chief complaint: Extremity Injury, Lower Stated complaint: sent by [facility] leg inj Time Seen by Provider: 06/29/23 12:39 History of Present Illness: Patient is an 88-year-old female comes to the ED with left leg pain. Approximately 8 to 9 days ago patient says she fell and hit her left leg and calf on a wooden table and cut it. Cut on left leg started to bleed and the cat began to lick and scratch at it. She then developed cellulitis of her left lower leg around the cut. She went and saw the urgent care clinic and [place] and they put her on a course of antibiotics. Today patient went and saw all urgent care clinic for follow-up on left leg pain. Patient still is having severe tenderness to the left lower leg. She also endorses having sharp shooting pains in her foot especially around her great toe. Pain is a 10 out of 10 when left lateral lower leg is touched. Endorses having fever and chills over the past 2 days. Urgent care clinic told patient to come here to the ED for further evaluation. Patient has completed taking all of her previously prescribed antibiotics. She does ambulate with a cane and states that pain in her left leg gets worse upon ambulation. Associated symptoms: Deny chest pain, fever(s) or rash Review of Systems Const: Denies: fever(s), chills or fatigue Eyes: Denies: change in vision or eye discomfort ENMT: Denies: throat pain, odynophagia, nasal discharge or nasal congestion Card: Denies: chest pain, palpitations, edema, swelling of feet/ankles, dyspnea on exertion or orthopnea Resp: Denies: dyspnea, productive cough or non-productive cough GI: Denies: abdominal pain, nausea, vomiting, diarrhea, constipation or hemato chezia : Denies: flank pain, dysuria or hematuria Musc: Reports: extremity pain (Left lower leg pain and left foot pain); Denies: neck pain, back pain or extremity swelling Skin/Breast: Denies: rash or new lesions Neuro: Denies: headache(s), numbness in extremities or weakness in extremities PFS ED PFSH: Medical History Closed left hip fracture Fall Hyperglycemia Intertrochanteric fracture of left hip continue therapy. Needs placement. Neck pain Nephrolithiasis Osteoarthritis Osteoporosis Rheumatoid arthritis Tobacco dependency Surgical History History of appendectomy History of exploratory laparotomy History of hernia repair Postoperative state Family History Other Diabetes Social History Smoking and tobacco status: current some day smoker Alcohol intake: current Alcohol intake frequency: 0-2 Drinks per Day Physical Exam Const: COMMON NORMALS: no acute distress, patient oriented x3 and alert HENMT: COMMON NORMALS: normocephalic HEAD & SCALP: normocephalic MOUTH: Normal oral and palatal mucosa present THROAT: posterior oropharynx normal and uvula midline Neck/C-Spine: COMMON NORMALS: supple GENERAL: Yes normal visual inspection Resp: COMMON NORMALS: normal respiratory effort, No retractions, No use of accessory muscles and clear to auscultation bilaterally AUSCULTATION: clear to auscultation bilaterally Cardio: COMMON NORMALS: regular rate, regular rhythm, S1 normal heart sound present, S2 normal heart sound present, No gallops present (Cardio), No clicks present (Cardio), No murmurs present (Cardio) and Peripheral pulses 2+ throughout RATE: regular rate RHYTHM: regular rhythm HEART SOUNDS: S1 normal heart sound present and S2 normal heart sound present PERIPHERAL PULSES: Peripheral pulses 2+ throughout GI: COMMON NORMALS: Normal to inspection, nondistended, normoactive bowel sounds present, Soft to palpation, non-tender and no masses PALPATION: Yes Soft to palpation : COMMON NORMALS: Yes no CVA tenderness BLADDER/KIDNEY EXAM: Yes no CVA tenderness Back/Pelvis: COMMON NORMALS: no CVA tenderness Extremity: NARRATIVE EXTREMITY EXAM: No signs of any cellulitis around healing cut wound on lateral aspect of left lower leg. No warmth, purulent drainage seen. The lateral aspect of her left lower leg was tender to palpation throughout with no localized tenderness. Left calf tenderness. Neuro: COMMON NORMALS: patient oriented x3 SENSORIUM/ORIENTATION: Yes alert GAIT: Yes Normal gait present Skin: GENERAL SKIN EXAM: dry skin Course Vital Signs: Vital signs: Vital Signs Temperature 97.8 F 06/29/23 11:47 Pulse Rate 76 06/29/23 14:10 Respiratory Rate 24 H 06/29/23 14:10 Blood Pressure 160/136 06/29/23 14:10 Pulse Oximetry 91 06/29/23 14:10 Oxygen Delivery Me thod Room Air 06/29/23 13:51 MDM - Extremity (Nontraumatic) Medical Decision Making Patient is an 88-year-old female comes to the ED with left leg pain. Approximately 8 to 9 days ago patient says she fell and hit her left leg and calf on a wooden table and cut it. Cut on left leg started to bleed and the cat began to lick and scratch at it. She then developed cellulitis of her left lower leg around the cut. She went and saw the urgent care clinic and [place] and they put her on a course of antibiotics. Today patient went and saw all urgent care clinic for follow-up on left leg pain. Patient still is having severe tenderness to the left lower leg. She also endorses having sharp shooting pains in her foot especially around her great toe. Pain is a 10 out of 10 when left lateral lower leg is touched. Endorses having fever and chills over the past 2 days. Urgent care clinic told patient to come here to the ED for further evaluation. Patient has completed taking all of her previously prescribed antibiotics. She does ambulate with a cane and states that pain in her left leg gets worse upon ambulation. Vitals are stable. Patient appears nontoxic in no acute distress or pain. No signs of any cellulitis around healing cut wound on lateral aspect of left lower leg. No warmth, purulent drainage seen. The lateral aspect of her left lower leg was tender to palpation throughout with no localized tenderness. Left calf tenderness. White blood cell count of 10.1 and the rest of CBC and CMP were unremarkable. CRP was 64.4 and lactic was normal at 1.6. X-ray of left foot showed no acute findings. Patient refused any referral to podiatry. I spoke with patient and told her that I would like to do an ultrasound to check for blood clot in left leg and also to do an ultrasound of the arterial blood flow of left lower leg. Patient adamantly refused getting any ultrasounds done on her left leg. I told patient the risk and and that I am unable to rule out things like a blood clot or any obstruction and arterial blood flow to the left leg if I cannot have ultrasound done. I told her what the risk are to that and she understood and still refused to have any ultrasound imaging of her left lower leg performed. I had patient's sign AMA form before discharge and I explained to her that I was unable to do a full work-up to rule out any other causes of her left lower leg pain. Patient was given a shot of Rocephin and diagnosed with left lower leg pain. Given her exam and labs I do not think her left leg pain has anything to do with an infection or cellulitis. Told to follow-up with her PCP or return to ED if symptoms worsen Lab Data I reviewed the patient's lab results. 06/29/23 12:59 06/29/23 12:59 Radiology Impressions Foot X-Ray 06/29/23 12:54 IMPRESSION: Nonacute findings. Laboratory Results WBC 10.1 10^3/uL (4.0-10.0) H 06/29/23 12:59 RBC 4.69 10^6/uL (4.1-5.3) 06/29/23 12:59 Hgb 14.3 g/dL (11.5-15.3) 06/29/23 12:59 Hct 43.5 % (37.0-47.0) 06/29/23 12:59 MCV 92.8 fl (81-99) 06/29/23 12:59 MCH 30.5 pg (28.0-34.0) 06/29/23 12:59 MCHC 32.9 g/dL (30.0-36.0) 06/29/23 12:59 RDW 13.4 % (12.1-15.1) 06/29/23 12:59 Plt Count 219 10^3/cmm (130-400) 06/29/23 12:59 MPV 9.6 fL (7.4-10.4) 06/29/23 12:59 Neut % (Auto) 74.7 % 06/29/23 12:59 Lymph % (Auto) 15.0 % 06/29/23 12:59 [place] % (Auto) 8.8 % 06/29/23 12:59 Eos % (Auto) 0.8 % 06/29/23 12:59 Baso % (Auto) 0.4 % 06/29/23 12:59 Neut # (Auto) 7.57 10^3/uL (1.8-7.7) 06/29/23 12:59 Lymph # (Auto) 1.5 10^3/uL (0.8-4.8) 06/29/23 12:59 [place] # (Auto) 0.9 10^3/uL (0.2-0.9) 06/29/23 12:59 Eos # (Auto) 0.1 10^3/uL (0.0-0.8) 06/29/23 12:59 Baso # (Auto) 0.0 10^3/uL (0.0-0.1) 06/29/23 12:59 Nucleated RBC % (auto) 0 % 06/29/23 12:59 Nucleated RBCs # 0.0 /100WBC 06/29/23 12:59 Sodium 136 mmol/L (136-145) 06/29/23 12:59 Potassium 4.4 mmol/L (3.5-5.1) 06/29/23 12:59 Chloride 99 mmol/L (98-107) 06/29/23 12:59 Carbon Dioxide 23 mmol/L (22-29) 06/29/23 12:59 Anion Gap 18.4 (5-19) 06/29/23 12:59 BUN 9 mg/dL (8-23) 06/29/23 12:59 Creatinine 0.5 mg/dL (0.5-0.9) 06/29/23 12:59 GFR Calculation Not Reportable 06/29/23 12:59 Glucose 92 mg/dL (65-115) 06/29/23 12:59 Calculated Osmolality 280 mOsm/kg (285-295) L 06/29/23 12:59 Lactic Acid 1.6 mmol/L (0.5-2.2) 06/29/23 12:59 Calcium 9.0 mg/dL (8.5-10.5) 06/29/23 12:59 Total Bilirubin 0.5 mg/dL (0.15-1.2) 06/29/23 12:59 AST 34 U/L (0-32) H 06/29/23 12:59 ALT 21 U/L (0-33) 06/29/23 12:59 Alkaline Phosphatase 64 U/L (35-105) 06/29/23 12:59 C-Reactive Protein 64.4 mg/L (0.0-4.9) H 06/29/23 12:59 Total Protein 7.0 g/dL (6.6-8.7) 06/29/23 12:59 Albumin 4.1 g/dL (3.5-5.2) 06/29/23 12:59 Globulin 2.9 g/dL (1.3-4.6) 06/29/23 12:59 Discharge Plan Discharge Patient Disposition: Home Clinical Impression: Pain in left lower leg Condition: Stable Prescriptions: No Action ginseng 1 tab PO PRN Discharge Orders: Discharge ED (Routine); Ordered 06/29/23 Ordered By: Brandan Walter Referrals: Lito Pickard MD [Primary Care Provider] - Discharge Diet: Regular Discharge Activity: Increase activity as tolerated Activity Restrictions/Additional Instructions: Follow-up with a medical provider in the next 3 to 5 days for reevaluation. Return to the ER or your medical provider if condition worsens. Please read and understand discharge instructions. Thank you for choosing [facility] for your healthcare needs today. Please realize this is an emergency room and that we are providing you with a medical screening exam and this may not be complete and all inclusive of all the testing and or work up that you may need to determine your ailment or severity of your illness. It is very important that you follow up as instructed or that you return to the Emergency Department should you have concerns or if your condition changes or worsens in any way. Coding Level of Care Code ED Damage Assessor for Leonel Carrasco
[2023-06-29 13:06] LABS: Basophils % 0.4 %; Eosinophils # 0.1 10^3/uL (0.0-0.8); Eosinophils % 0.8 %; Hematocrit 43.5 % (37.0-47.0); Hemoglobin 14.3 g/dL (11.5-15.3); Lymphocytes # 1.5 10^3/uL (0.8-4.8); Mean Corpuscular HGB Conc 32.9 g/dL (30.0-36.0); Mean Corpuscular Hemoglobin 30.5 pg (28.0-34.0); Mean Corpuscular Volume 92.8 fl (81-99); Mean Platelet Volume 9.6 fL (7.4-10.4); Monocytes # 0.9 10^3/uL (0.2-0.9); Monocytes % 8.8 %; Neutrophils # 7.57 10^3/uL (1.8-7.7); Neutrophils % 74.7 %; Nucleated Red Blood Cells % 0 %; Platelet Count 219 10^3/cmm (130-400); Red Blood Count 4.69 10^6/uL (4.1-5.3); Red Cell Distribution Width 13.4 % (12.1-15.1); White Blood Count 10.1 10^3/uL (4.0-10.0)
[2023-06-29 13:24] LABS: Lactic Sepsis W/Reflex 1.6 mmol/L (0.5-2.2)
[2023-06-29 13:30] LABS: Alanine Aminotransferase 21 U/L (0-33); Albumin Level 4.1 g/dL (3.5-5.2); Alkaline Phosphatase 64 U/L (35-105); Anion Gap 18.4 (5-19); Aspartate Amino Transferase 34 U/L (0-32); Blood Urea Nitrogen 9 mg/dL (8-23); C Reactive Protein 64.4 mg/L (0.0-4.9); Carbon Dioxide 23 mmol/L (22-29); Chloride 99 mmol/L (98-107); Globulin 2.9 g/dL (1.3-4.6); Glucose 92 mg/dL (65-115); Osmolality Calculated 280 mOsm/kg (285-295); Potassium 4.4 mmol/L (3.5-5.1); Sodium 136 mmol/L (136-145); Total Bilirubin 0.5 mg/dL (0.15-1.2)
[2023-06-29 13:51] VITALS: PULSE 80; RESP 16; O2SAT 92
[2023-06-29 14:10] VITALS: BP 160/136; PULSE 76; RESP 24; O2SAT 91
[2023-06-29] MEDS: cefTRIAXone 1,000 MG in water for injection-sterile 2.1 ML 1 MG IM (15:00)
== END 2023-06-29 15:21 | disposition home or self-care (01) ==
PROVIDERS: Emergency Provider Physician Assistant; PCP Internal Medicine
DX: M79.605 Pain in left leg (principal); F17.210 Nicotine dependence, cigarettes, uncomplicated
CPT/HCPCS: 36415; 73630; 80053; 83605; 85025; 86140; 96372; 99285; J0696